=== PATIENT | female | born 1955 | race Caucasian/White ===

== ENCOUNTER 2020-01-01 12:55 | Observation (INO) | payer MEDICARE ==
[~2020-01-01] VITALS: Ht 170.2 cm; Wt 95.5 kg
[2020-01-01 14:00] VITALS: BP 99/60
[2020-01-01 14:16] LABS: BASOPHILS 1.8 % (0-2); EOSINOPHILS 3.2 % (0-7); HEMATOCRIT 36.6 % (36.0-48.0); IMMATURE GRANULOCYTES 0.5 % (0-5); LYMPHOCYTES 43.8 % (15-50); MCH 28.2 pg (26.0-34.0); MCHC 32.8 g/dL (31.0-37.0); MCV 86.1 fL (80.0-100.0); MEAN PLATELET VOLUME 9.8 fL (7.4-10.4); MONOCYTES 7.7 % (2-11); PLATELET COUNT 207 10x3/uL (130-400); RBC 4.25 10x6/uL (4.00-5.40); RDW 14.2 % (11.5-14.5); WBC 8.3 10x3/uL (4.8-10.8)
[2020-01-01 14:20] LABS: CALC OSMOLALITY 275 mosm/kg (275-300); CALCIUM 8.7 mg/dL (8.5-10.1); CHLORIDE - SERUM 100 mmol/L (98-107); CREATININE - SERUM 2.2 mg/dL (0.6-1.3); GLUCOSE 117 mg/dL (74-106); POTASSIUM - SERUM 3.5 mmol/L (3.5-5.1); SODIUM 133 mmol/L (136-145); UREA NITROGEN 37 mg/dL (7-18); eGFR NON AFRICAN AMERICAN 24 mL/min (90-120)
[2020-01-01 14:35] LABS: ALBUMIN 3.4 g/dL (3.4-5.0); ALKALINE PHOSPHATASE 59 U/L (30-120); ALT (SGPT) 38 U/L (10-68); BILIRUBIN - TOTAL 0.29 mg/dL (0.2-1.3); CKMB 1.5 U/L (0.0-3.6); CREATINE KINASE 61 UL (21-215); PROTEIN - SERUM 7.5 g/dL (6.4-8.2); TROPONIN-I < 0.017 ng/mL (0.000-0.060)
[2020-01-01 15:00] VITALS: BP 110/61
[2020-01-01 16:51] VITALS: BP 122/58
[2020-01-01] MEDS ORDERED: LISINOPRIL-HCT1 EAC8 PO (18:11)
[2020-01-01] MEDS ORDERED: ALENDRONAT70 MG/75 M PO (18:12)
[2020-01-01] MEDS ORDERED: ZOLOFT100 MG PO (18:13)
[2020-01-01] MEDS ORDERED: VITAMIN D PO (18:15)
[2020-01-01 18:27] VITALS: BP 100/52; Ht 170.2 cm; Wt 95.5 kg
--- NOTE | 2020-01-01 18:35 | NUR ---
ASSESSMENT PER ADMIT FLOW SHEET. PATIENT IS WITHOUT DISTRESS.ORIENTATION TO ROOM. FALL PREVENTION IN PLACE WITH NANDA MAT,BAND,SOCKS AND GOWN. CALL LIGHT IN REACH
[2020-01-01 20:00] VITALS: BP 110/49
--- NOTE | 2020-01-01 20:05 | NUR ---
LYING IN BED. ALERT AND ORIENTED X4. RESP IRREG. JUST CAME BACK FROM [place]. SOB WITH MIN EXERTION. PT IS A SMOKER. NONPROD COUGH. REPORTS DIARRHEA THIS AM. NO TELEMETRY AVAILABLE, SPOKE WITH DARY MORRIS. NS @ 200 MLHR INFUSING IN LT FOREARM. AMBULATORY. DENIES PAIN. NO DISTRESS. NANDA ALARM ON FOR PT SAFETY. SR ELEVATED X2. CL IN REACH. NO NEURO DEFICITS NOTED.
[2020-01-02] VITALS: BP 113/53
--- NOTE | 2020-01-02 03:22 | NUR ---
HAS RESTED WELL TONIGHT. NO DISTRESS. DENIES NEEDS. NANDA ON. CL IN REACH.
[2020-01-02 04:00] VITALS: BP 101/58; BP 104/56; BP 94/49
[2020-01-02 06:05] LABS: HEMATOCRIT 32.6 % (36.0-48.0); HEMOGLOBIN 10.8 g/dL (12-16); MCH 28.4 pg (26.0-34.0); MCHC 33.1 g/dL (31.0-37.0); MCV 85.8 fL (80.0-100.0); MEAN PLATELET VOLUME 9.6 fL (7.4-10.4); PLATELET COUNT 197 10x3/uL (130-400); RDW 14.1 % (11.5-14.5); WBC 6.3 10x3/uL (4.8-10.8)
--- NOTE | 2020-01-02 06:31 | NUR ---
NANDA WAIVER SIGNED AT THIS TIME. PT AWARE OF RISKS ASSOCIATED WITH NOT USING BED ALARM
[2020-01-02 06:57] LABS: APTT 28.8 SECONDS (22.8-39.4); INR 1.08 (0.85-1.17)
--- NOTE | 2020-01-02 07:15 | NUR ---
REC'D IN WALKING ROUND AWAKE AND ALERT. RESP EVEN AND UNLABORED WITH NO DISTRESS NOTED. CAN EXPRESS NEEDS AND WANTS. NO C/O NOTED AT THIS TIME. ASSESSMENT COMPLETED. C/L IN REACH AT BEDSIDE.
[2020-01-02 07:29] LABS: ALBUMIN 2.8 g/dL (3.4-5.0); ALKALINE PHOSPHATASE 52 U/L (30-120); ALT (SGPT) 31 U/L (10-68); BILIRUBIN - TOTAL 0.21 mg/dL (0.2-1.3); CALC OSMOLALITY 276 mosm/kg (275-300); CALCIUM 8.1 mg/dL (8.5-10.1); CARBON DIOXIDE 20.5 mmol/L (21.0-32.0); CHLORIDE - SERUM 105 mmol/L (98-107); CHOL - HDL RATIO 4.9 ratio (2.3-4.1); CHOLESTEROL, TOTAL 143 mg/dL (0-200); CKMB 1.5 U/L (0.0-3.6); CREATINE KINASE 68 UL (21-215); GLUCOSE 108 mg/dL (74-106); HDL CHOLESTEROL 29 mg/dL (32-96); LDL CHOLESTEROL 93 mg/dL (0-100); LDL-HDL RATIO 3.2 ratio (1.5-3.5); PHOSPHOROUS 3.2 mg/dL (2.5-4.9); POTASSIUM - SERUM 3.5 mmol/L (3.5-5.1); PRO BNP 191 pg/mL (0-125); PROTEIN - SERUM 6.7 g/dL (6.4-8.2); SODIUM 135 mmol/L (136-145); TRIGLYCERIDE 106 mg/dL (30-200); TROPONIN-I < 0.017 ng/mL (0.000-0.060); UREA NITROGEN 30 mg/dL (7-18); eGFR NON AFRICAN AMERICAN 37 mL/min (90-120)
[2020-01-02 07:30] LABS: CREATININE - SERUM 1.5 mg/dL (0.6-1.3)
[2020-01-02 08:46] VITALS: BP 83/51
[2020-01-02 12:17] VITALS: BP 94/61
[2020-01-02 12:41] LABS: BASOPHILS 2 % (0-2); EOSINOPHILS 4 % (0-7); LYMPHOCYTES 60 % (15-50); MONOCYTES 8 % (2-11); NEUTROPHILS 23 % (40-80); PLATELET ESTIMATE NORMAL
[2020-01-02 12:42] LABS: PLATELET MORPHOLOGY PLT CLUMPS PRESENT; ROULEAUX OCC
--- NOTE | 2020-01-02 12:49 | NUR ---
I have reviewed this patient and I concur with the Shift Assessment completed by the Licensed Practical Nurse today this shift.
[2020-01-02 16:53] VITALS: BP 112/58
[2020-01-02 20:00] VITALS: BP 110/67
[2020-01-03 04:00] VITALS: BP 111/49; BP 114/61; BP 77/42
--- NOTE | 2020-01-03 05:18 | NUR ---
I have reviewed this patient and I concur with the Shift Assessment completed by the Licensed Practical Nurse today this shift.
[2020-01-03 07:00] LABS: BASOPHILS 2.7 % (0-2); EOSINOPHILS 4.8 % (0-7); HEMATOCRIT 32.8 % (36.0-48.0); HEMOGLOBIN 10.7 g/dL (12-16); IMMATURE GRANULOCYTES 0.3 % (0-5); LYMPHOCYTES 64.4 % (15-50); MCH 28.2 pg (26.0-34.0); MCHC 32.6 g/dL (31.0-37.0); MCV 86.3 fL (80.0-100.0); MEAN PLATELET VOLUME 10.8 fL (7.4-10.4); MONOCYTES 9.4 % (2-11); NEUTROPHILS 18.4 % (40-80); PLATELET COUNT 186 10x3/uL (130-400); RDW 14.4 % (11.5-14.5); WBC 7.3 10x3/uL (4.8-10.8)
[2020-01-03 07:03] LABS: ALBUMIN 2.8 g/dL (3.4-5.0); ANION GAP 12.5 mmol/L (8-16); BILIRUBIN - TOTAL 0.27 mg/dL (0.2-1.3); CALCIUM 8.2 mg/dL (8.5-10.1); CREATININE - SERUM 1.2 mg/dL (0.6-1.3); MAGNESIUM - SERUM 1.9 mg/dL (1.8-2.4); PHOSPHOROUS 2.7 mg/dL (2.5-4.9); POTASSIUM - SERUM 3.5 mmol/L (3.5-5.1); PROTEIN - SERUM 6.6 g/dL (6.4-8.2)
--- NOTE | 2020-01-03 07:15 | NUR ---
REC'D IN BED AWAKE AND ALERT. RESP EVEN AND UNLABORED WITH NO DISTRESS NOTED CAN EXPRESS NEEDS AND WANTS. NO C/O NOTED OR VOICED. ASSESSMENT COMPLETED. C/L IN REACH AT BEDSIDE.
[2020-01-03 09:48] VITALS: BP 117/63
[2020-01-03] MEDS ORDERED: NICODERM CQ1 EAC3 TRANSDERM (11:44)
[2020-01-03 12:58] VITALS: BP 110/62
--- NOTE | 2020-01-03 14:31 | NUR ---
I have reviewed this patient and I concur with the Shift Assessment completed by the Licensed Practical Nurse today this shift.
--- NOTE | 2020-01-03 14:32 | NUR ---
I have reviewed this patient and I concur with the Shift Assessment completed by the Licensed Practical Nurse today this shift.
--- NOTE | 2020-01-03 15:02 | NUR ---
DC HOME AT THIS TIME VOICES UNDERSTANDING OF DC ORDERS. IV DC WELL. STABLE CONDITION UPON DEPARTURE WITH ALL PERSONAL BELONGS.
== END 2020-01-03 15:05 | disposition home or self-care (01) ==
LOC: D.ER 12:55 → D.MS 16:35 → OBSVTIME 16:36 → D.MS 17:57
PROVIDERS: Family Medicine; Family Medicine Adult Medicine; ADMIT Family Medicine; ATTEND Family Medicine
DX: N17.9 Acute kidney failure, unspecified (principal); R55 Syncope and collapse; I10 Essential (primary) hypertension; F32.9 Major depressive disorder, single episode, unspecified; W19.XXXA Unspecified fall, initial encounter; M81.0 Age-related osteoporosis without current pathological fracture; Z72.0 Tobacco use